=== PATIENT | male | born 1950 | race Caucasian/White ===

== ENCOUNTER 2016-04-28 03:50 | Inpatient (IN) | payer OTHER ==
--- NOTE | 2016-04-27 10:36 | History & Physical Pre-Op ---
General Information and HPI History of Present Illness: Fahad is a 66-year-old male with a long-standing history of a nonhealing ulcer to the distal tip of his right second digit. The lesion is associated with an underlying fixed claw toe deformity. The patient has undergone an extensive course of conservative care, including strict offloading and local intensive wound care. Unfortunately, the patient developed a significant cellulitis and then it under lying osteomyelitis associated with the lesion. Allergies/Medications Allergies: Coded Allergies: NO KNOWN ALLERGIES (03/12/14) Past History Medical History Cardiovascular: AFIB Surgical History Pertinent Surgical History: non-contributory Review of Systems Review of Systems: Unremarkable except for that noted in history of present illness Exam & Diagnostic Data Physical Exam: Lungs clear bilaterally. Heart sounds rate and rhythm regular. Lower extremity physical exam demonstrates intact pedal pulses bilaterally. Both dorsalis pedis and posterior tibial arteries are palpable bilaterally. Patient without any sensory motor deficits. Deep tendon reflexes grossly intact. Have a Sharma grade 3 ulceration to his right second digit with exposed bone noted centrally. There is cellulitis extending from the distal tip of the digit to the metatarsophalangeal joint. Minimal amount of serous drainage identified. Assessment/Plan Assessment/Plan: Cellulitis right lower extremity with an underlying osteomyelitis. A lengthy discussion reviewing both surgical and conservative options with the patient at bedside and the patient elects to go forward with surgery despite the risks. As Ranked By This Provider Problem List: 1. Other acute osteomyelitis, right ankle and foot Attending MD Review Statement Attending Statement Attending MD Statement: examined this patient
[~2016-04-28] VITALS: Ht 182.9 cm; Wt 101.6 kg
[~2016-04-28 03:50] MED LIST: ALLOPURINOL100 M1 PO; ATORVASTATIN CA40 M1 PO; FOLBIC RF TABL1 EACH PO; LEVO-T50 MCG PO; MAGNESIUM400 M1 PO; RANITIDINE HCL150 MG PO
--- NOTE | 2016-04-28 13:41 | Operative Report ---
Operative/Inv Procedure Report Surgery Date: 04/28/16 Name of Procedure: 1 open incision and drainage deep to the fashion with exposure of the extensor and flexor tendon and tendon sheath multiple sites right foot 2 partial second ray resection right foot 3 intraoperative administration of ankle block anesthesia 4 excisional debridement Pre-Operative Diagnosis: 1 necrotic infected wound right foot 2 osteomyelitis right foot 3 peripheral arterial disease Post-Operative Diagnosis: The same Estimated Blood Loss: less than 50ml Surgeon/Digital Media Strategist: MERNA OVIEDO DPM Anesthesia: moderate sedation, block Operative/Procedure Note Note: After obtaining informed consent the patient was brought to the operating room and placed on the operating table in the supine position. The patient isn't securely fastened to the operating table utilizing safety belt. After measures of IV sedation, 10 mL of 0.5% Marcaine plain was infiltrated about the patient's right ankle. The right foot and ankle then scrubbed prepped and draped in usual aseptic manner. Digitorectal right foot, where a large full-thickness necrotic was identified encompassing the second digit distally. A 15 blade was utilized to sharply revised skin margins and the dissection was then carried down deep to the deep fascia with exposure of the extensor and flexor tendon and tendon sheath multiple sites, both proximally and distally. Necrotic nonviable infected tissue sharply evacuated from the wound bed. A fishmouth-type incision was then extended proximally encompassing the distal portion of the digit which was disarticulated and specimen was sent for microbiologic inspection. The dissection continued proximally.periosteum of the distal second ray which was incised reflected. A sagittal bone saw was utilized to create a through and through osteotomy and the distal osseous segment was sent for pathologic inspection. Nipple was then irrigated with 3 L of normal sterile saline fissure 50,000 units of bacitracin. Following this the foot was redraped and the surgeon's top gloves were changed clean gloves. Any bleeding vessels identified were cauterized or ligated as encountered. The foot was then packed with wet to dry dressing and 3-0 nylon retention sutures were placed. Foot was dressed with 4 x 4's Kerlix and an Emilio wrap. The patient was noted to tolerate both procedure and anesthesia well and the patient was transported from the operating room to recovery with vital signs stable.
[2016-04-28 15:45] VITALS: BP 140/80
--- NOTE | 2016-04-28 15:47 | Cons- Medical ---
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 He is status post excisional debridement and partial second ray resection of right foot by Dr. Oviedo today. He offers no complaints. There is no history of smoking. Patient drinks beer occasionally. He lives alone. Works in maintenance. Last bowel movement this morning. His preop blood work was done on April 26, CBC and CMP, that was normal. Preop EKG is without any acute ST-T wave changes. It shows A. fib. Right foot MRI was done on April 21 that showed osteomyelitis of second distal phalanx with associated cellulitis and distal second toe ulcer. Allergies/Medications Allergies: Coded Allergies: NO KNOWN ALLERGIES (04/28/16) Home Med List: Allopurinol 100 MG TABLET 100 MG PO D DISCOMFORT (Reported) Atorvastatin Calcium 40 MG TABLET 40 MG PO D CHOLESTEROL (Reported) B12/Levomefolate Calcium/B-6 (Folbic Rf Tablet) 2 MG-1.13 MG-25 MG TABLET SUPPLEMENT (Reported) Levothyroxine Sodium (Levo-T) 50 MCG TABLET 50 MCG PO D THYROID (Reported) Magnesium Oxide (Magnesium) 400 MG CAPSULE 400 MG PO D SUPPLEMENT (Reported) Ranitidine (Ranitidine HCl) 150 MG TABLET 150 MG PO D ACID REFULUX (Reported) Current Medications: Current Medications Sig/Johann Start time Last Medication Dose Route Stop Time Status Admin Acetaminophen 650 MG Q6P PRN 04/28 1400 AC PO Allopurinol 100 MG DAILY 04/29 1000 AC PO Ampicillin Sodium/ 3,000 MG Q6H 04/28 1600 AC Sulbactam Sodium IV Sodium Chloride 100 ML Atorvastatin Calcium 40 MG 1700 04/28 1700 AC PO Docusate Sodium 100 MG DAILY NEEDED PRN 04/28 1400 AC PO Famotidine 20 MG DAILY 04/29 1000 AC PO Heparin Sodium 5,000 UNIT Q8 04/28 1400 AC (Porcine) SC Oxycodone HCl 5 MG Q6P PRN 04/28 1400 AC PO Senna/Docusate Sodium 1 TAB BID PRN 04/28 1400 AC PO Review of Systems Review of Systems Constitutional: Reports: see HPI. Past History Medical History Cardiovascular: AFIB Surgical History Surgical History: right tibiofibular fracture, right ankle fracture Psychosocial History Who Do You Live With? self Services at Home: None Primary Language: Comoran Smoking Status: Never Smoked ETOH Use: occasional use Illicit Drug Use: denies illicit drug use Exam & Diagnostic Data Physical Exam General Appearance: well developed/nourished, no apparent distress, alert, awake , comfortable Head: atraumatic, normal appearance Neck: supple Respiratory: normal breath sounds, lungs clear Cardiovascular: irregularly irregular Peripheral Pulses: 2+ tibialis posterior (R), 2+ tibialis posterior (L) Gastrointestinal: normal bowel sounds, soft, non-tender, obese Neurologic/Psych: no motor/sensory deficits, awake, alert, oriented x 3 Last 24 Hrs of Labs/Dewey: not done Assessment/Plan Assessment/Plan He is 66-year-old man with past medical history of chronic nonhealing 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 He is status post excisional debridement and partial second ray resection of right foot by Dr. Oviedo today. We will admit patient on general medicine floor. Vitals every shift. We'll follow OR cultures. We will continue IV Unasyn. Pain management and bowel regimen. Patient is going to revision and wound closure by Dr. Oviedo on Sunday. We will continue all his home medications. Subcutaneous heparin for DVT prophylaxis. Full code Problem List: 1. Osteomyelitis Consult Acknowledgment - Thank you for your consult request. FELTON SELF MD 04/28/16 7581: Exam & Diagnostic Data Last 24 Hrs of Vital Signs/I&O Vital Signs Date Time Temp Pulse Resp B/P Pulse O2 O2 Flow FiO2 Ox Delivery Rate 04/29 0600 98.6 70 20 116/72 96 Room Air 04/28 2150 98.1 75 20 120/70 95 04/28 1545 98.6 80 18 140/80 99 Room Air Intake & Output 04/29 1600 04/29 0800 04/29 0000 Intake Total 320 730 Output Total 1050 600 Balance -730 130 Intake, IV 120 130 Intake, Oral 200 600 Number 0 Bowel Movements Output, Urine 1050 600 Assessment/Plan Consult Acknowledgment - Thank you for your consult request. Attending MD Review Statement Attending Statement Attending MD Statement: examined this patient, discuss w/resident/PA/PRODUCTION SORTER, agreed w/resident/PA/PRODUCTION SORTER, reviewed EMR data (avail), discussed with nursing, reviewed images, amended to note Attending Assessment/Plan: The patient is a 66 yo female with h/o chronic atrial fibrillation, PVD, HL, gout, and hypothyroidism who was admitted to the Podiatry service after excisional debridement and partial second ray amputation of the right foot by Dr. Oviedo for osteomyelitis. He has chronic afib with no need for rate control or anticoagulation. Had prior cardiac workup including ECHO and stress test. MRI showed osteomyelitis of the 2nd toe- distal phalanx where his ulcer was located. He has no h/o diabetes. No fever, chills, chest pain or other symptoms. Physical Exam: VS: T98.1, P 75, R 20, BP 120/70, PO 95% HEENT: eyes- PERRLA, EOMI fadi- moist mucosa, no lesions Neck: no JVD or bruits Chest: clear Cor: sl irreg, nl rate, nl S1, S2 w/o murm Abd: BS+, soft, NT Ext: pulses 2+, dressing right foot intact & dry post op Neuro: alert & oriented x 3, non-focal Labs/Tests- as above Impression/Plan: #Osteomyelitis Right Foot- as above, s/p partial 2nd ray amputation and debridement. Deep culture done. Plan: Agree with IV Unasyn pending culture. Post op care as per Dr. Oviedo. #Chronic Atrial Fibrillation- HR has beewn stable as per patient. No anticoaculation as low CHADVASC score. Plan: Observe off of meds. #Hyperlipidemia- On Atovasatin. Plan: Continue Atorvastatin. #Hyothyroid- on Levothyroxine. Plan: Continue Levothyroixine.
[2016-04-28 21:50] VITALS: BP 120/70
[2016-04-29 06:00] VITALS: BP 116/72
[2016-04-29 08:33] LABS: ABSOLUTE BASOPHIL COUNT 0.1 /CUMM (0.0-0.2); ABSOLUTE EOSINOPHIL COUNT 0.3 /CUMM (0.0-0.7); ABSOLUTE GRANULOCYTE CT 3.8 /CUMM (1.4-6.5); ABSOLUTE LYMPH COUNT 3.5 /CUMM (1.2-3.4); BASOPHIL % 0.6 % (0.0-2.0); GRANULOCYTE % 43.8 % (42.2-75.2); HEMATOCRIT 41.5 % (42-52); MEAN CORPUSCULAR HGB 33.2 PG (27.0-31.0); MEAN CORPUSCULAR HGB CONC 33.7 G/DL (33.0-37.0); MEAN CORPUSCULAR VOLUME 98.3 FL (80.0-94.0); MEAN PLATELET VOLUME 9.7 FL (7.4-10.4); PLATELET COUNT 186 /CUMM (130-400); RBC DISTRIBUTION WIDTH 13.9 % (11.5-14.5); RED BLOOD CELL CT 4.22 /CUMM (4.70-6.10); WHITE BLOOD CELL COUNT 8.6 /CUMM (4.8-10.8)
[2016-04-29 15:04] VITALS: BP 138/84
--- NOTE | 2016-04-29 15:12 | PN- Podiatry ---
Subjective Subjective: Patient seen at bedside with no acute complaints. Patient denies nausea vomiting fever chills. She has minimal pain right foot, which is however well controlled with by mouth analgesics. Objective Vital Signs and I&Os Vital Signs Date Time Temp Pulse Resp B/P Pulse O2 O2 Flow FiO2 Ox Delivery Rate 04/29 1504 98.7 88 20 138/84 97 04/29 0600 98.6 70 20 116/72 96 Room Air 04/28 2150 98.1 75 20 120/70 95 04/28 1545 98.6 80 18 140/80 99 Room Air Intake & Output 04/29 1600 04/29 0800 04/29 0000 04/28 1600 04/28 0800 04/28 0000 Intake Total 800 320 730 Output Total 1050 600 Balance 800 -730 130 Intake, IV 120 130 Intake, Oral 800 200 600 Number 1 0 Bowel Movements Output, Urine 1050 600 Patient 225 lb Weight Physical Exam: Dressing right foot clean and intact with some dried strikethrough identified. No pain with deep palpation bilateral lower extremities. Assessment/Plan Assessment/Plan Cellulitis right lower extremity with underlying osteomyelitis. Continue IV antibiotics. Follow-up final cultures. Patient to the OR Sunday for revision and closure. Core Measures/Miscellaneous Venous Thromboembolism VTE Risk Factors: Age > 40, Surgery VTE Contraindications: No Contraindications VTE Prophylaxis Ordered Inpt: Pharm- Heparin VTE Diagnosis: No Beta Timothy Is Beta Timothy a Home Med? No Antibiotics Is Patient on Antibiotics? Yes If Yes: infection Attending MD Review Statement Attending Statement Attending MD Statement: examined this patient
--- NOTE | 2016-04-29 17:27 | PN- Att Addend ---
Attending Addendum Attending Brief Note S: The patient appears comfortable. Did accidentally hit toe on bed when startled by nursing earlier. No chest pain, dyspnea, etc. O: VS: Vital Signs Date Time Temp Pulse Resp B/P Pulse O2 O2 Flow FiO2 Ox Delivery Rate 04/29 1504 98.7 88 20 138/84 97 04/29 0600 98.6 70 20 116/72 96 Room Air 04/28 2150 98.1 75 20 120/70 95 Intake & Output 04/29 1600 04/29 0800 04/29 0000 Intake Total 800 320 730 Output Total 1050 600 Balance 800 -730 130 Intake, IV 120 130 Intake, Oral 800 200 600 Number 1 0 Bowel Movements Output, Urine 1050 600 Current Medications Sig/Johann Start time Last Medication Dose Route Stop Time Status Admin Acetaminophen 650 MG Q6P PRN 04/28 1400 AC PO Allopurinol 100 MG DAILY 04/29 1000 AC 04/29 PO 0835 Ampicillin Sodium/ 3,000 MG Q6H 04/28 2100 AC 04/29 Sulbactam Sodium IV 1610 Sodium Chloride 100 ML Atorvastatin Calcium 40 MG DAILY 04/29 1000 AC 04/29 PO 1139 Atorvastatin Calcium 40 MG 1700 04/28 1700 DC 04/28 PO 1804 Docusate Sodium 100 MG DAILY NEEDED PRN 04/28 1400 AC PO Famotidine 20 MG AT BEDTIME 04/29 2200 AC PO Famotidine 20 MG DAILY 04/29 1000 DC PO Heparin Sodium 5,000 UNIT Q8 04/28 1400 AC 04/29 (Porcine) SC 1330 Levothyroxine Sodium 0.05 MG DAILY AC 04/29 0700 AC 04/29 PO 0641 Oxycodone HCl 5 MG Q6P PRN 04/28 1400 AC 04/29 PO 1152 Senna/Docusate Sodium 1 TAB BID PRN 04/28 1400 AC PO Physical Exam: HEENT: fadi- moist mucosa Neck: no JVD Chest: clear Cor: sl irreg, nl rate, nl S1, S2 w/o murm Abd: BS+, soft, NT Ext: left foot wrapped with some serosanguineous drainage Labs: Laboratory Tests 04/29/16 0620: CBC w Diff NO MAN DIFF REQ, RBC 4.22 L, MCV 98.3 H, MCH 33.2 H, RDW 13.9, MPV 9.7, Gran % 43.8, Lymphocytes % 40.4, Monocytes % 11.2 H, Eosinophils % 4.0, Basophils % 0.6, Absolute Granulocytes 3.8, Absolute Lymphocytes 3.5 H, Absolute Monocytes 1.0 H, Absolute Eosinophils 0.3, Absolute Basophils 0.1, PUBS MCHC 33.7 Impression/Plan: #Osteomyelitis Right Foot- as above, s/p ray amputation/debridement. Cultures pending. Plan: Post op care as per Podiatry. Continue IV Unasyn. Await cultures. #Chronic Atrial Fibrillation- HR stable. Plan: Will continue to monitor. No anticoagulation needed due to low ISABEL score. #Hyperlipidemia- on Atorvastatin. Plan: Continue Atorvastatin. #Hypothyroid- on Levothyroxine. PalN; Continue Levothyroxine. #H/O Gout- no active symptoms. Plan: Continue allopurinol.
[2016-04-29 22:46] VITALS: BP 122/70
[2016-04-30 06:46] VITALS: BP 136/78
--- NOTE | 2016-04-30 12:33 | PN- Podiatry ---
Subjective Subjective: Patient seen at bedside with no acute complaints. Patient denies nausea vomiting fever chills. Patient denies right foot pain. Objective Vital Signs and I&Os Vital Signs Date Time Temp Pulse Resp B/P Pulse O2 O2 Flow FiO2 Ox Delivery Rate 04/30 0646 98.7 90 18 136/78 95 Room Air 04/29 2246 98.5 82 20 122/70 94 Room Air 04/29 1504 98.7 88 20 138/84 97 Intake & Output 04/30 1600 04/30 0800 04/30 0000 04/29 1600 04/29 0800 04/29 0000 Intake Total 360 1750 800 320 730 Output Total 486 399 9272 600 Balance -440 850 800 -730 130 Intake, IV 120 250 120 130 Intake, Oral 240 1500 800 200 600 Number 0 1 0 Bowel Movements Output, Urine 336 879 2239 600 Physical Exam: Dressing right foot intact and stable. Dry strikethrough identified. No pain with deep palpation bilateral lower extremities. Assessment/Plan Assessment/Plan Cellulitis right lower extremity with underlying ostium myelitis. Patient to the OR tomorrow for revision and closure. Patient nothing by mouth past midnight. Core Measures/Miscellaneous Venous Thromboembolism VTE Risk Factors: Age > 40, Surgery VTE Contraindications: No Contraindications VTE Prophylaxis Ordered Inpt: Pharm- Heparin VTE Diagnosis: No Beta Timothy Is Beta Timothy a Home Med? No Antibiotics Is Patient on Antibiotics? Yes If Yes: infection Attending MD Review Statement Attending Statement Attending MD Statement: examined this patient
--- NOTE | 2016-04-30 13:11 | PN- Att Addend ---
Attending Addendum Attending Brief Note S: Patient w/o complaints today. Awaiting surgery tomorrow. O: VS: Vital Signs Date Time Temp Pulse Resp B/P Pulse O2 O2 Flow FiO2 Ox Delivery Rate 04/30 0646 98.7 90 18 136/78 95 Room Air 04/29 2246 98.5 82 20 122/70 94 Room Air 04/29 1504 98.7 88 20 138/84 97 Intake & Output 04/30 1600 04/30 0800 04/30 0000 Intake Total 360 1750 Output Total 800 900 Balance -440 850 Intake, IV 120 250 Intake, Oral 240 1500 Number 0 Bowel Movements Output, Urine 800 900 Current Medications Sig/Johann Start time Last Medication Dose Route Stop Time Status Admin Acetaminophen 650 MG .STK-MED ONE 04/30 041 DC PO 04/30 041 Acetaminophen 650 MG Q6P PRN 04/28 1400 AC 04/30 PO 0908 Allopurinol 100 MG DAILY 04/29 1000 AC 04/30 PO 0903 Ampicillin Sodium/ 3,000 MG Q6H 04/28 2100 AC 04/30 Sulbactam Sodium IV 0903 Sodium Chloride 100 ML Atorvastatin Calcium 40 MG DAILY 04/29 1000 AC 04/30 PO 0903 Docusate Sodium 100 MG DAILY NEEDED PRN 04/28 1400 AC PO Famotidine 20 MG AT BEDTIME 04/29 2200 AC 04/29 PO 2149 Heparin Sodium 5,000 UNIT Q8 04/28 1400 AC 04/30 (Porcine) SC 0601 Levothyroxine Sodium 0.05 MG DAILY AC 04/29 0700 AC 04/30 PO 0559 Oxycodone HCl 5 MG Q6P PRN 04/28 1400 AC 04/29 PO 1904 Senna/Docusate Sodium 1 TAB BID PRN 04/28 1400 AC PO Sodium Chloride 1,000 ML Q13H 05/01 0600 AC IV Physical Exam: HEENT: fadi- moist mucosa Neck: no JVD Chest: clear Cor: sl irreg, nl rate, nl S1, S2 w/o murm Abd: BS+, soft, NT Ext: left foot wrapped with some serosanguineous drainage Labs: Laboratory Tests 04/29/16 0620: CBC w Diff NO MAN DIFF REQ, RBC 4.22 L, MCV 98.3 H, MCH 33.2 H, RDW 13.9, MPV 9.7, Gran % 43.8, Lymphocytes % 40.4, Monocytes % 11.2 H, Eosinophils % 4.0, Basophils % 0.6, Absolute Granulocytes 3.8, Absolute Lymphocytes 3.5 H, Absolute Monocytes 1.0 H, Absolute Eosinophils 0.3, Absolute Basophils 0.1, PUBS MCHC 33.7 Microbiology Date/Time Procedure - Status Source Growth 04/28 1324 Gross Specimen Examination - RES EXTREMITIE STAPH AUREUS 04/28 1324 Gram Stain - RES EXTREMITIE Impression/Plan: #Osteomyelitis Right Foot- as above, s/p ray amputation/debridement. Cultures growing staph aureus. Plan: Post op care as per Podiatry. Continue IV Unasyn. Await final cultures. To OR tomorrow. #Chronic Atrial Fibrillation- HR stable. Plan: Will continue to monitor. No anticoagulation needed due to low ISABEL score. #Hyperlipidemia- on Atorvastatin. Plan: Continue Atorvastatin. #Hypothyroid- on Levothyroxine. PalN; Continue Levothyroxine. #H/O Gout- no active symptoms. Plan: Continue allopurinol.
[2016-04-30 14:53] VITALS: BP 128/72
[2016-04-30 22:34] VITALS: BP 130/82
[2016-05-01 06:30] VITALS: BP 128/80
[2016-05-01 15:30] VITALS: BP 134/88
[2016-05-01] MEDS ORDERED: PERCOCET 5-3251 EACH PO (16:42)
[2016-05-01] MEDS ORDERED: AUGMENTIN 875-1 EACH PO (16:42)
--- NOTE | 2016-05-01 16:50 | Surgical Discharge Summary ---
Visit Information Visit Dates Admission Date: 04/28/16 Discharge Date: 05/01/16 History of Present Illness Chief Complaint: Fahad is a 66-year-old male who was admitted following a lengthy course of wound care for a contracted digit which ultimately developed an underlying osteomyelitis. The patient failed outpatient conservative care, despite local intensive wound care and strict offloading. Medical History Blood Transfusion Hx: No Neurological: NONE EENT: NONE Cardiovascular: AFIB, hyperlipidemia Respiratory: NONE Gastrointestinal: GERD Hepatic: NONE Renal: NONE Musculoskeletal: NONE Psychiatric: NONE Endocrine: hypothyroidism Blood Disorders: NONE Cancer(s): NONE COLOR WEIGHER/Reproductive: NONE History of MRSA: No History of VRE: No History of CDIFF: No Isolation History: Standard Surgical History Pertinent Surgical History: right tibiofibular fracture right ankle fracture Psychosocial History Where Do You Live? Home Who Do You Live With? Patient/Self Services at Home: None What is Your Primary Language? Colombian ETOH Use: occasional use Review of Systems: Unremarkable except for that noted in history of present illness Hospital Course Course Attending Physician: MERNA OVIEDO DPM Primary Care Physician: MATTHEW BHAKTA MD Hospital Course: Lisa was admitted for an open I&D of his right foot and started on broad- spectrum IV antibiotics. Return to the OR 3 days later for a revision and closure of his open wound. Patient was stable and afebrile during the course of his stay his bone cultures were noted to grow staph aureus. Allergies: Coded Allergies: NO KNOWN ALLERGIES (04/28/16) Disposition Summary Disposition Principal Diagnosis: Cellulitis right lower extremity Additional Diagnosis: Osteomyelitis right foot Discharge Disposition: home or self care Discharge Instructions General Discharge Information Code Status: Full Code Patient's Diet: Regular Patient's Activity: Weight-bear as tolerated in surgical shoe Follow-Up Instructions/Appts: Patient was instructed to follow-up with Dr. Samuel within 1 week of discharge Medications at Discharge Discharge Medications: Continue taking these medications: Allopurinol (Allopurinol) 100 MG TABLET 100 Milligram ORAL Every Day Ranitidine (Ranitidine HCl) 150 MG TABLET 150 Milligram ORAL Every Day B12/Levomefolate Calcium/B-6 (Folbic Rf Tablet) 2 MG-1.13 MG-25 MG TABLET ORAL Every Day Atorvastatin Calcium (Atorvastatin Calcium) 40 MG TABLET 40 Milligram ORAL Every Day Magnesium Oxide (Magnesium) 400 MG CAPSULE 400 Milligram ORAL Every Day Levothyroxine Sodium (Levo-T) 50 MCG TABLET 50 Microgram ORAL Every Day Start taking the following new medications: Oxycodone HCl/Acetaminophen (Percocet 5-325 MG Tablet) 5 MG-325 MG TABLET 1 Tablet ORAL TWICE DAILY as needed for PAIN SCALE 4-6 (MODERATE) Qty = 60 No Refills Amoxicillin/Potassium Clav (Augmentin 875-125 Tablet) 875 MG-125 MG TABLET 1 Tablet ORAL TWICE DAILY Qty = 14 No Refills Attending MD Review Statement Attending Statement Attending MD Statement: examined this patient
--- NOTE | 2016-05-01 17:21 | PN- Medicine Consult ---
ARAMIS MAE,FELTON 05/[birth year]/162109: Assessment/Plan Assessment/Plan Assessment: See Attending Note Below Plan: See Attending Note Below Subjective Subjective: See Below Objective Last 24 Hrs of Vital Signs/I&O Vital Signs Date Time Temp Pulse Resp B/P Pulse O2 O2 Flow FiO2 Ox Delivery Rate 05/01 1530 97.4 83 18 134/88 100 Room Air 05/01 0630 98.1 77 20 128/80 97 Room Air 04/30 2234 97.9 84 20 130/82 96 Room Air Intake & Output 05/01 1600 05/01 0800 05/01 0000 Intake Total 253 926 7481 Output Total 1150 Balance 650 -1030 2240 Intake, IV 600 120 240 Intake, Oral 50 2000 Number 0 Bowel Movements Output, Urine 1150 Patient 101.605 kg Weight Current Medications: Current Medications Sig/Johann Start time Last Medication Dose Route Stop Time Status Admin Acetaminophen 1,000 MG .STK-MED ONE 05/01 1247 DC IV 05/01 1248 Acetaminophen 650 MG Q6P PRN 04/28 1400 DCD 04/30 PO 0908 Allopurinol 100 MG DAILY 04/29 1000 DCD 05/01 PO 0822 Ampicillin Sodium/ 3,000 MG Q6H 04/28 2100 DCD 05/01 Sulbactam Sodium IV 1626 Sodium Chloride 100 ML Atorvastatin Calcium 40 MG DAILY 04/29 1000 DCD 05/01 PO 0822 Docusate Sodium 100 MG DAILY NEEDED PRN 04/28 1400 DCD PO Famotidine 20 MG AT BEDTIME 04/29 2200 DCD 04/30 PO 2118 Fentanyl Citrate 250 MCG .STK-MED ONE 05/01 1247 DC IM 05/01 1248 Heparin Sodium 5,000 UNIT Q8 04/28 1400 DCD 04/30 (Porcine) SC 2118 Hydromorphone HCl 2 MG .STK-MED ONE 05/01 1246 DC IM 05/01 1247 Levothyroxine Sodium 0.05 MG DAILY AC 04/29 0700 DCD 05/01 PO 0539 Midazolam HCl 2 MG .STK-MED ONE 05/01 1247 DC IM 05/01 1248 Oxycodone HCl 5 MG Q6P PRN 04/28 1400 DCD 05/01 PO 0004 Senna/Docusate Sodium 1 TAB BID PRN 04/28 1400 DCD PO Sodium Chloride 1,000 ML Q13H 05/01 0600 DCD 05/01 IV 0540 Results Last 24 Hrs Lab/Dewey Results: none Attending MD Review Statement Attending Sign Off Attending Cosign Statement: I have: examined this patient, reviewed [facility] EMR data, discussd w/resident/PA/ [employer], amended to note. Other Findings: S: The patient was seen prior and post procedure and had no complaints. O: VS: Vital Signs Date Time Temp Pulse Resp B/P Pulse O2 O2 Flow FiO2 Ox Delivery Rate 05/01 1530 97.4 83 18 134/88 100 Room Air 05/01 0630 98.1 77 20 128/80 97 Room Air 04/30 2234 97.9 84 20 130/82 96 Room Air Intake & Output 05/01 1600 05/01 0800 05/01 0000 Intake Total 840 137 3434 Output Total 1150 Balance 650 -1030 2240 Intake, IV 600 120 240 Intake, Oral 50 2000 Number 0 Bowel Movements Output, Urine 1150 Patient 101.605 kg Weight Current Medications Sig/Johann Start time Last Medication Dose Route Stop Time Status Admin Acetaminophen 1,000 MG .STK-MED ONE 05/01 1247 DC IV 05/01 1248 Acetaminophen 650 MG Q6P PRN 04/28 1400 DCD 04/30 PO 0908 Allopurinol 100 MG DAILY 04/29 1000 DCD 05/01 PO 0822 Ampicillin Sodium/ 3,000 MG Q6H 04/28 2100 DCD 05/01 Sulbactam Sodium IV 1626 Sodium Chloride 100 ML Atorvastatin Calcium 40 MG DAILY 04/29 1000 DCD 05/01 PO 0822 Docusate Sodium 100 MG DAILY NEEDED PRN 04/28 1400 DCD PO Famotidine 20 MG AT BEDTIME 04/29 2200 DCD 04/30 PO 2118 Fentanyl Citrate 250 MCG .STK-MED ONE 05/01 1247 DC IM 05/01 1248 Heparin Sodium 5,000 UNIT Q8 04/28 1400 DCD 04/30 (Porcine) SC 2118 Hydromorphone HCl 2 MG .STK-MED ONE 05/01 1246 DC IM 05/01 1247 Levothyroxine Sodium 0.05 MG DAILY AC 04/29 0700 DCD 05/01 PO 0539 Midazolam HCl 2 MG .STK-MED ONE 05/01 1247 DC IM 05/01 1248 Oxycodone HCl 5 MG Q6P PRN 04/28 1400 DCD 05/01 PO 0004 Senna/Docusate Sodium 1 TAB BID PRN 04/28 1400 DCD PO Sodium Chloride 1,000 ML Q13H 05/01 0600 DCD 05/01 IV 0540 Physical Exam: HEENT: fadi- moist mucosa Neck: no JVD Chest: clear Cor: sl irreg, nl rate, nl S1, S2 w/o murm Abd: BS+, soft, NT Ext: left foot wrapped with some serosanguineous drainage Labs: Culture from wound growing MSSA and ?staph epi Impression/Plan: #Osteomyelitis Right Foot- as above, s/p ray amputation/debridement. Cultures growing staph aureus with some staph epi (probably not significant). Went to OR this morning for wound closure and did well. Plan: Discharge tody per Podiatry. Augmentin 875 mg bid x 7 days. #Chronic Atrial Fibrillation- HR stable. Plan: Will continue to monitor. No anticoagulation needed due to low ISABEL score. #Hyperlipidemia- on Atorvastatin. Plan: Continue Atorvastatin. #Hypothyroid- on Levothyroxine. PalN; Continue Levothyroxine. #H/O Gout- no active symptoms. Plan: Continue allopurinol.
--- NOTE | 2016-05-15 17:45 | Operative Report ---
Operative/Inv Procedure Report Surgery Date: 05/01/16 Name of Procedure: 1 open incision and drainage deep to the D fashion with exposure of the extensor and flexor tendon and tendon sheath multiple sites right foot 2 delayed primary closure of open surgical wound with local random advancement flap 3 revisional ray resection right foot 4 intraoperative administration of ankle block anesthesia 5 excisional debridement Pre-Operative Diagnosis: 1 open necrotic wound right foot 2 osteomyelitis right foot Post-Operative Diagnosis: The same Estimated Blood Loss: less than 50ml Surgeon/House Manager: MERNA OVIEDO DPM Anesthesia: moderate sedation, block Operative/Procedure Note Note: After obtaining informed consent the patient was brought to the operating room and placed on the operating table in supine position. The patient isn't securely fastened to the operating table utilizing safety belt. After administration of IV sedation, 10 mL of 0.5% Marcaine plain was infiltrated about the patient's right ankle. The right foot and ankle then scrubbed prepped and draped in usual aseptic manner. Attention was directed to the right foot, where a large full-thickness necrotic was identified. A 15 blade was utilized sharply revised skin margins. Dissection was then carried down deep to the deep fascia with exposure of the extensor and flexor tendon and tendon sheath multiple sites right foot. All necrotic nonviable infected tissue sharply evacuated from the wound bed. The dissection was then carried down to the periosteum overlying the distal stump of the metatarsal, which was incised reflected. Sagittal bone saw was utilized to perform a through and through osteotomy. The distal osseous segment was then freed and passed from the operative field. Specimen was sent for pathologic inspection. The open wound was then irrigated with 3 L of normal sterile saline infusion 50,000 units of bacitracin. Following this the foot was redraped and the surgeon's top gloves were exchanged for clean gloves. Any bleeding vessels identified were cauterized or ligated as encountered. A dorsal flap was then developed with undermining, mobilization and advancement of the flap from a superior to inferior position. The deep side of the flap was held centrally with 3-0 Vicryl. Plantarly, the moring ligaments were released and the adjacent tissues were again mobilized, and advanced towards the open portion the wound. The deep side flap was held with 3-0 Vicryl. The septae stitches were then reapproximated with 4-0 Vicryl and the skin edges reapproximated 3-0 nylon. Incision was then dressed with Xeroform 4 x 4's Kerlix and an Emilio wrap. The patient was noted to tolerate both procedure and anesthesia well and the patient was transported from the operating room to recovery with vital signs stable and vascular status intact to both the dorsal and plantar flaps.
== END 2016-05-01 18:05 | DRG 464 ==
LOC: ENRESERVTM → ENRESERVDT → STS 03:50 → 2NA 13:05 → PACUH 13:05 → 2NA 16:07
PROVIDERS: Internal Medicine; ADMIT Podiatrist Foot & Ankle Surgery
PROC: 0Y6R0Z3 Detachment at Right 2nd Toe, Low, Open Approach (ICD-10-PCS; principal; 2016-04-28)
PROC: 0QBN0ZZ Excision of Right Metatarsal, Open Approach (ICD-10-PCS; 2016-05-01)
PROC: 0HXMXZZ Transfer Right Foot Skin, External Approach (ICD-10-PCS; 2016-05-01)
DX: M86.171 Other acute osteomyelitis, right ankle and foot (principal); L03.115 Cellulitis of right lower limb; L97.519 Non-pressure chronic ulcer of other part of right foot with unspecified severity; B95.61 Methicillin susceptible Staphylococcus aureus infection as the cause of diseases classified elsewhere; I73.9 Peripheral vascular disease, unspecified; I48.2 Chronic atrial fibrillation; E03.9 Hypothyroidism, unspecified; E78.5 Hyperlipidemia, unspecified; M10.9 Gout, unspecified; K21.9 Gastro-esophageal reflux disease without esophagitis
CPT/HCPCS: 2NAP; 87070; 87075; 87184; 87147; 88304; 88305; J0131; J1644; J2001